=== PATIENT | male | born 1995 | race African-American/Black ===

== ENCOUNTER 2017-03-18 11:55 | Emergency (ER) | payer MEDICAID, OTHER ==
[~2017-03-18] VITALS: Ht 180.3 cm; Wt 72.6 kg
[~2017-03-18 11:55] MED LIST: ALBUTEROL SULF8.5 GM INH; AZITHROMYCIN250 MG ORAL; COLACE100 MG ORAL; MIRALAX17 G2 ORAL; NKM; PROMETHAZINE-C118 M1 ORAL
[2017-03-18 12:15] VITALS: BP 112/71
--- NOTE | 2017-03-18 12:26 | Emergency Room Report ---
History of Present Illness General Chief Complaint: Upper Extremity Injury Source: Patient Present Illness HPI 22 YO Male presents to the ED c/o non- itchy dry rash and skin discoloration to bilateral hands x weeks, in addition to 7/10 in severity pain to the base of the right thumb, exacerbated with grasping things tightly. pt. denies trauma or fall. 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 denies erythema, increased temperature to palpation, cracked skin, blisters, bruises or bleeding. pt. does report open wound to the left index finger . pt. states tetanus is UTD. Denies numbness tingling or loss of sensation or gross motor movements of the extremities, incontinence of bowel or bladder. Denies CP , Palpitations, LOC, AMS, dizziness, Changes in Vision, Sensation, paresthesias , or a sudden severe headache. Allergies: Coded Allergies: No Known Allergies (Unverified , 10/11/15) Patient History Past Medical History: see triage record Past Surgical History: none Pertinent Family History: none Immunizations: UTD Reviewed Nursing Documentation: PMH: Agreed, PSxH: Agreed Nursing Documentation-PMH Past Medical History: No Stated History Review of Systems All Other Systems: negative except mentioned in HPI Physical Exam Vital Signs Date Time Temp Pulse Resp B/P Pulse Ox O2 Delivery O2 Flow Rate FiO2 03/18/17 12:03 97.9 66 18 112/71 99 Room Air Sp02 EP Interpretation: reviewed, normal General Appearance: no apparent distress, alert, GCS 15, non-toxic Head: normocephalic, atraumatic Eyes: bilateral eye PERRL, bilateral eye normal inspection ENT: hearing grossly normal, normal voice Neck: full range of motion Respiratory: lungs clear, normal breath sounds, speaking full sentences Cardiovascular #1: regular rate, rhythm, no edema Rectal: deferred Musculoskeletal: back normal, gait/station normal, normal range of motion, tender - TTP to the thenar aspect of the right hand, no obvious deformity, no appreciable swelling noted, no erythema, bruises , negative snuff box tenderness. FROM Neurologic: alert, oriented x3, responsive, motor strength/tone normal, sensory intact, speech normal Psychiatric: judgement/insight normal, memory normal, mood/affect normal Skin: normal color, warm/dry, rash - dry palms, and knuckles to the hands bilaterally, 1cm skin tear noted to the left index finger, no bleeding, no evidence of secondary infeciton, mild white dry discoloration noted to fissures of the hands, no vessicles or blisters. Lymphatic: no adenopathy Medical Decision Making PA Attestation Dr. Arreaga is my supervising Physician whom patient management has been discussed with. Diagnostic Impression: Primary Impression: Tendonitis Additional Impressions: Tendonitis of right hand Dermatitis ER Course 22 YO Male presents to the ED c/o non- itchy dry rash and skin discoloration to bilateral hands x weeks, in addition to 7/10 in severity pain to the base of the right thumb, exacerbated with grasping things tightly. pt. denies trauma or fall. 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 denies erythema, increased temperature to palpation, cracked skin, blisters, bruises or bleeding. pt. does report open wound to the left index finger . pt. states tetanus is UTD. Denies numbness tingling or loss of sensation or gross motor movements of the extremities, incontinence of bowel or bladder. Denies CP , Palpitations, LOC, AMS, dizziness, Changes in Vision, Sensation, paresthesias , or a sudden severe headache. Ddx considered but are not limited to tendonitis, sprain, fracture, over-use syndrome, cellulitis, dermatitis, urticaria, eczema, tinea Vital signs: are WNL, pt. is afebrile H&PE are most consistent with right thenar tendonitis, and bilateral dermatitis of the hands secondary to excessive moisture, and over use. ORDERS: none required at this time, the diagnosis is clinical, HPI and PE do not suggest fracture, xray imaging is not warranted at this time. ED INTERVENTIONS: -Thumb spika Splint is applied to the right hand by waste management recycling technician. The pt. remained NVI. - D/W pt. conservative treatment, keeping hands dry, and using proper gloves while washing dishes. d/w pt. to follow up with primary care provider. d/w pt. to return to ED with worsening or new symptoms. pt. is also given a list of follow up primary care clinics as a resource. d/w pt. alternating hands while scrubbing dishes as well as alternating cleaning devices/vice president of engineering. DISCHARGE: At this time pt. is stable for d/c to home. Will provide printed patient care instructions, and any necessary prescriptions. Care plan and follow up instructions have been discussed with the patient prior to discharge. Last Vital Signs Date Time Temp Pulse Resp B/P Pulse Ox O2 Delivery O2 Flow Rate FiO2 03/18/17 12:03 97.9 66 18 112/71 99 Room Air Disposition: HOME, SELF-CARE Condition: Stable Scripts Bacitracin/Polymyxin B Sulfate (BACITRACIN-POLYMYXIN OINTMENT) 28.35 Gm Oint...g. 1 APPLIC TP QHS, #28.3 GM Prov: Molly Miles 03/18/17 Ibuprofen* (MOTRIN*) 600 Mg Tablet 600 MG ORAL THREE TIMES A DAY, #30 TAB 0 Refills Prov: Molly Miles 03/18/17 Departure Forms: Return to Work Return to Work Date: Mar 18, 2017 Work Restrictions: No Heavy Lifting Other Restrictions: limited use of right hand. wear proper dishwashing gloves to keep hands dry Return to Full Activity: Mar 25, 2017 Patient Instructions: Repetitive Strain Injuries, Tendinitis Additional Instructions: Take medications as directed. Follow up with a Primary Care Provider in 3-5 days, even if your symptoms have resolved. --Please review list of primary care clinics, if you do not already have a primary care provider Return sooner to ED if new symptoms occur, or current symptoms become worse. - Please note that this Emergency Department Report was dictated using [employer] assistant technology software, occasionally this can lead to erroneous entry secondary to interpretation by the dictation equipment. Molly Miles Mar 18, 2017 12:26
[2017-03-18] MEDS ORDERED: IBUPROFEN600 MG ORAL (12:28)
[2017-03-18] MEDS ORDERED: BACITRACIN-P28.35 GM TP (12:28)
[2017-03-18 12:47] VITALS: BP 112/71
== END 2017-03-18 12:47 | disposition home or self-care (01) ==
LOC: EMR 12:40
DX: L30.9 Dermatitis, unspecified (principal); M77.9 Enthesopathy, unspecified; S61.211A Laceration without foreign body of left index finger without damage to nail, initial encounter; X58.XXXA Exposure to other specified factors, initial encounter; Y93.9 Activity, unspecified; Y92.9 Unspecified place or not applicable
CPT/HCPCS: 29260; 99283

== ENCOUNTER 2019-12-13 20:04 | Emergency (ER) | payer MEDICAID, OTHER ==
[~2019-12-13] VITALS: Ht 172.7 cm; Wt 68.0 kg
[~2019-12-13 20:04] MED LIST changes: +BACITRACIN-P28.35 GM TP; +BENADRYL50 MG ORAL; +FLONASE1 SPRAYS NASAL; +IBUPROFEN600 MG ORAL; +PREDNISONE20 MG ORAL; +PROMETH-CODEIN 65 ML PO
--- NOTE | 2019-12-13 20:27 | NUR ---
ED Nurse Note: PT walked in to ED for C/O pain to left side/ ribcage area since this morning. pt beleives he may hurt himself while working at [employer].
[2019-12-13 20:29] VITALS: BP 130/80
[2019-12-13] MEDS ORDERED: ACETAMINOPHEN500 M3 ORAL (20:36)
--- NOTE | 2019-12-13 20:48 | Emergency Room Report ---
History of Present Illness General Chief Complaint: Pain Source: Patient Present Illness HPI Disclaimer: Please note that this report is being documented using [employer] technology. This can lead to erroneous entry secondary to incorrect interpretation by the dictating instrument. HPI: 24-year-old male presents for left upper back pain. He states is been present since this morning he woke up with the pain. Pain is 8 out of 10 worse with movement of his arm. Denies trauma denies shortness of breath cough or fever. He currently works in a warehouse. He has not taken any medication for the pain. PMH: Patient denies any past medical history PSH: Reviewed Social Hx: Denied smoking occasional drinker denied illicit drug use Allergies: Coded Allergies: No Known Allergies (Unverified , 11/12/15) COVID-19 Screening Contact w/high risk pt: No Recent Travel to affected area: No Experienced COVID-19 symptoms?: No Nursing Documentation-PMH Past Medical History: No Stated History Review of Systems All Other Systems: negative except mentioned in HPI Physical Exam Vital Signs Date Time Temp Pulse Resp B/P (MAP) Pulse Ox O2 Delivery O2 Flow Rate FiO2 12/13/19 20:20 98.8 100 16 127/87 (100) 97 Room Air Sp02 EP Interpretation: reviewed, normal General Appearance: well appearing, no apparent distress Head: normocephalic, atraumatic Eyes: bilateral eye PERRL, bilateral eye EOMI ENT: hearing grossly normal, moist mucus membranes Neck: full range of motion, supple Respiratory: lungs clear, normal breath sounds, no rhonchi, no respiratory distress, no retraction, no wheezing Cardiovascular #1: normal peripheral pulses, regular rate, rhythm, no murmur Gastrointestinal: non tender, soft, non-distended, no guarding Musculoskeletal: other - Mild tenderness noted to the posterior left shoulder area with some pain with range of motion. No deformity noted. Neurologic: alert, oriented x3, no focal defects Skin: normal color, warm/dry Medical Decision Making Diagnostic Impression: Primary Impression: Upper back pain ER Course Differential diagnosis included but not limited to muscle strain, muscle spasm, contusion less likely fracture dislocation or infectious process. Patient in no acute distress nontoxic-appearing exam was benign with some mild tenderness noted. I recommended analgesics as needed avoiding heavy lifting and follow-up with his PMD. He was given return precautions. He was stable for discharge. Last Vital Signs Date Time Temp Pulse Resp B/P (MAP) Pulse Ox O2 Delivery O2 Flow Rate FiO2 12/13/19 20:29 98.8 95 18 130/80 98 Room Air Disposition: HOME, SELF-CARE Condition: Stable Scripts Acetaminophen* (ACETAMINOPHEN EXTRA STRENGTH*) 500 Mg Tablet 500 MG ORAL Q6H, #30 TAB Prov: Jairo Farmer M.D. 12/13/19 [address]: [facility] Departure Forms: Return to Work Return to Work in (Days): 2 Return to Work Date: December 15, 2019 Patient Instructions: Back Pain, Adult, [id number] Additional Instructions: Patient is instructed to follow-up with her primary care doctor, primary care clinic or [facility] in 1 to 2 days. Patient instructed to return for any worsening symptoms or concerns. Disclaimer: Please note that this report is being documented using [employer] technology. This can lead to erroneous entry secondary to incorrect interpretation by the dictating instrument. Jairo Farmer M.D. December 13, 2019 20:48
[2019-12-13 20:54] VITALS: BP 122/73
--- NOTE | 2019-12-13 20:54 | NUR ---
ER DISCHARGE NOTE: Patient is cleared to be discharged per ERMD, pt is aox4, on room air, with stable vital signs. pt was given dc and prescription instructions, pt was able to verbalize understanding, pt id band removed without complications. pt is able to ambulate with steady gait. pt took all belongings.
== END 2019-12-13 20:54 | disposition home or self-care (01) ==
LOC: EMR 20:15 → MERGE 20:15 → EMR 20:54
DX: M54.6 Pain in thoracic spine (principal)
CPT/HCPCS: 99282

== ENCOUNTER 2019-12-21 07:18 | Emergency (ER) | payer OTHER ==
[~2019-12-21] VITALS: Ht 172.7 cm; Wt 68.0 kg
[~2019-12-21 07:18] MED LIST changes: +ACETAMINOPHEN500 M3 ORAL
[2019-12-21 07:30] VITALS: BP 138/83
--- NOTE | 2019-12-21 07:30 | NUR ---
ED Nurse Note: Pt dropped off too ER by mother, pt ambulatory with steady gait. pt c/o left arm pain x 1week. pt also reports experiencing sob, cough x 3 days accompanied with fever of 102 at triage. pt iv site establshed; patent and intact. fluids running per order.
--- NOTE | 2019-12-21 07:32 | NUR ---
ED Nurse Note: Pt currently does not show symptoms of SOB but presents with dry cough. pt reports being a chronic thc smoker and quit 12/06/2019. pt also says he has been drinking an herbal wine at home.
--- NOTE | 2019-12-21 07:35 | NUR ---
ED Nurse Note: pt present with tachycardia, denies chest pain. EKG completed. pt reports that left arm is discomforting but not painful.
[2019-12-21] MEDS ORDERED: Acetaminophen 500mg (ES) tab ORAL ONE ×2 (07:42→07:45)
--- NOTE | 2019-12-21 07:50 | NUR ---
ED Nurse Note: xray at bedside
--- NOTE | 2019-12-21 08:00 | NUR ---
ED Nurse Note: xray completed
--- NOTE | 2019-12-21 08:01 | Emergency Room Report ---
History of Present Illness General Chief Complaint: Fever Source: Patient Present Illness HPI 24-year-old male no past medical history no surgical history presents with fever , shortness of breath x3 days no aggravating relieving factors severity is mild , constant patient also endorses some left shoulder pain patient presents for evaluation Allergies: Coded Allergies: No Known Allergies (Unverified , 10/11/15) COVID-19 Screening Contact w/high risk pt: No Recent Travel to affected area: No Experienced COVID-19 symptoms?: No COVID-19 symptoms experienced: Shortness of Breath COVID-19 Testing performed CONE EXAMINER: No Patient History Past Medical History: see triage record Reviewed Nursing Documentation: PMH: Agreed; PSxH: Agreed Nursing Documentation-PMH Past Medical History: No History, Except For Review of Systems All Other Systems: negative except mentioned in HPI Physical Exam Vital Signs Date Time Temp Pulse Resp B/P (MAP) Pulse Ox O2 Delivery O2 Flow Rate FiO2 12/21/19 07:22 101.8 130 18 111/72 (85) 95 Room Air Sp02 EP Interpretation: reviewed, normal General Appearance: well appearing, no apparent distress, alert Head: normocephalic, atraumatic Eyes: bilateral eye PERRL, bilateral eye EOMI ENT: uvula midline, moist mucus membranes Neck: supple, thyroid normal, supple/symm/no masses Respiratory: lungs clear, no respiratory distress, no retraction, no accessory muscle use Cardiovascular #1: normal peripheral pulses, no edema, no gallop, no murmur, tachycardia Gastrointestinal: non tender, soft, no guarding, no rebound Musculoskeletal: normal inspection Neurologic: alert, oriented x3 Psychiatric: mood/affect normal Skin: no rash, warm/dry Medical Decision Making Diagnostic Impression: Primary Impression: Fever Qualified Codes: R50.9 - Fever, unspecified Additional Impression: Suspected 2019 novel coronavirus infection ER Course 24-year-old male presents with fever, chills, body aches, differential diagnosis includes viral syndrome, COVID, flu Patient given Tylenol, Motrin, fluids with improvement in heart rate no longer tachycardic Patient nontoxic-appearing disposition home with return cautions follow-up with PCP EKG Diagnostic Results EKG Time: 07:47 EP Interpretation: Sinus tachycardia, rate 124, QTc 462, no acute ST elevations , normal axis Rhythm Strip Diag. Results Rhythm Strip Time: 08:05 EP Interpretation: yes Rate: 120 Rhythm: other Chest X-Ray Diagnostic Results Chest X-Ray Diagnostic Results : Chest X-Ray Ordered: Yes # of Views/Limited/Complete: 1 View Indication: Chest Pain EP Interpretation: Yes Interpretation: no consolidation, no effusion, no pneumothorax, no acute cardiopulmonary disease Impression: No acute disease Electronically Signed by: Ruben Lopez MD Last Vital Signs Date Time Temp Pulse Resp B/P (MAP) Pulse Ox O2 Delivery O2 Flow Rate FiO2 12/21/19 07:22 101.8 130 18 111/72 (85) 95 Room Air Disposition: HOME, SELF-CARE Condition: Stable Scripts Ibuprofen* (MOTRIN*) 600 Mg Tablet 600 MG ORAL Q8H PRN for FOR PAIN, #30 TAB 0 Refills Prov: Ruben Lopez MD 12/21/19 Referrals: [facility] Patient Instructions: Fever, Adult, [id number] Additional Instructions: The patient was provided with discharge instructions, notified to follow-up with a primary care doctor and or specialist in the next 24-48 hours, and to return to the ED if they have worsening of their symptoms. Please note that this report is being documented using [employer] technology. This can lead to erroneous entry secondary to incorrect interpretation by the dictating instrument. Ruben Lopez MD December 21, 2019 08:01
[2019-12-21 08:28] VITALS: BP 135/75
--- NOTE | 2019-12-21 09:56 | Diagnostic Imaging Report ---
EXAM: XR Chest, 1 View CLINICAL HISTORY: Chest pain TECHNIQUE: Frontal view of the chest. COMPARISON: No relevant prior studies available. FINDINGS: Lungs: Scattered groundglass haziness in bilateral lungs, most prominently in the left mid and lower lung. No focal consolidation. Pleural space: Unremarkable. The costophrenic angles are sharp. No visible pneumothorax. Heart: Unremarkable. No cardiomegaly. Mediastinum: Unremarkable. Bones/joints: Unremarkable. Tubes, lines and devices: Telemetry leads overlie the thorax. IMPRESSION: Scattered groundglass haziness in bilateral lungs, most prominently in the left mid and lower lung. No focal consolidation. This is nonspecific and cannot exclude underlying pneumonitis.
[2019-12-21 10:36] VITALS: BP 118/72
[2019-12-21] MEDS ORDERED: IBUPROFEN600 M1 ORAL (10:41)
[2019-12-21 10:45] VITALS: BP 118/72
--- NOTE | 2019-12-21 10:45 | NUR ---
ER DISCHARGE NOTE: Patient is cleared to be discharged per ERMD, pt is aox4, on room air, with stable vital signs. pt was given dc and prescription instructions, pt was able to verbalize understanding, pt id band and iv site removed without complications. pt is able to ambulate with steady gait. pt took all belongings.
== END 2019-12-21 10:51 | disposition home or self-care (01) ==
LOC: EMR 08:00
DX: R50.9 Fever, unspecified (principal); R06.02 Shortness of breath; R00.0 Tachycardia, unspecified
CPT/HCPCS: 71045; 93005; 96360; 99284; J7030